=== PATIENT | female | born 1950 | race Caucasian/White ===

== ENCOUNTER → 2020-06-22 | Outpatient (CLI) | payer MEDICARE ==
[~2020-06-22] MED LIST: OMNIPAQUE 350 MG/ML, 150 ML BOTTLE ONE
== END | disposition home or self-care (01) ==
LOC: CFH 09:17
PROVIDERS: ATTEND Internal Medicine Cardiovascular Disease
DX: I48.91 Unspecified atrial fibrillation (principal); M41.85 Other forms of scoliosis, thoracolumbar region
CPT/HCPCS: 71046; 75572; 82565; Q9967

== ENCOUNTER 2020-06-25 05:54 | Observation (INO) | payer MEDICARE ==
[~2020-06-25] VITALS: Ht 175.3 cm; Wt 68.5 kg
[2020-06-25] MEDS ORDERED: SODIUM CHLORIDE 0.9% 1,000 ML IV ONE (06:30)
[2020-06-25] MEDS ORDERED: SODIUM CHLORIDE 0.9% 1,000 ML IV SCH (06:30)
[2020-06-25] MEDS ORDERED: APIX5TAB PO (06:31)
[2020-06-25] MEDS ORDERED: LOSA25TA25 PO (06:31)
[2020-06-25] MEDS ORDERED: RIZA10TA20 PO (06:31)
[2020-06-25] MEDS ORDERED: ESTR0.6246 PO (06:31)
[2020-06-25] MEDS ORDERED: DILT120C80 PO (06:31)
[2020-06-25 06:34] VITALS: BP 141/83
[2020-06-25] MEDS ORDERED: FENTANYL PF 250 MCG/5ML ONE (07:41)
[2020-06-25] MEDS ORDERED: MIDAZOLAM 1 MG/ML, 2ML ONE (07:41)
[2020-06-25] MEDS ORDERED: EPHEDRINE 50 MG/ML, 1ML ONE (08:21)
[2020-06-25] MEDS ORDERED: ONDANSETRON 2MG/ML, 2ML ONE (08:21)
[2020-06-25] MEDS ORDERED: LIDOCAINE 2%, 20ML ONE (08:42)
[2020-06-25] MEDS ORDERED: ROCURONIUM 10MG/ML,5ML ONE (09:27)
[2020-06-25] MEDS ORDERED: PROPOFOL 10 MG/ML, 20ML ONE (09:27)
[2020-06-25] MEDS ORDERED: SUCCINYLCHOLINE 20 MG/ML, 10ML ONE (09:28)
[2020-06-25] MEDS ORDERED: DEXAMETHASONE 4 MG/ML, 1ML ONE ×2 (09:30)
[2020-06-25] MEDS ORDERED: HEPARIN 1,000 UNITS/ML, 10ML ONE ×3 (11:12)
[2020-06-25] MEDS ORDERED: GLYCOPYRROLATE 0.2MG/1ML, 5ML ONE (11:33)
[2020-06-25] MEDS ORDERED: NEOSTIGMINE 1 MG/ML, 10ML ONE (11:33)
[2020-06-25] MEDS ORDERED: OXYcodone 5 MG/5 ML ORAL.SOL UDC PO PRN (12:00)
[2020-06-25] MEDS ORDERED: LABETALOL 5MG/ML, 20ML IV PRN (12:00)
[2020-06-25] MEDS ORDERED: ZOLPIDEM 5MG TABLET PO PRN (12:00)
[2020-06-25] MEDS ORDERED: ACETAMINOPHEN 325 MG TABLET PO PRN ×2 (12:00)
[2020-06-25] MEDS ORDERED: PROMETHAZINE 12.5 MG SUPP PR PRN (12:00)
[2020-06-25] MEDS ORDERED: hydrALAzine 20 MG/ML, 1ML IV PRN (12:00)
[2020-06-25] MEDS ORDERED: HYDROmorphone 1 MG/ML, 1ML INJ IVPush PRN (12:00)
[2020-06-25] MEDS ORDERED: EPHEDRINE 50 MG/ML, 1ML IVPush PRN (12:00)
[2020-06-25] MEDS ORDERED: APIXABAN 5 MG TABLET PO SCH (12:00)
[2020-06-25] MEDS ORDERED: MEPERIDINE/PF 25MG/0.5ML IVPush PRN (12:00)
[2020-06-25] MEDS: APIXABAN 5 MG TABLET PO SCH ×2 (12:00→21:12)
[2020-06-25] MEDS ORDERED: FENTANYL PF 100 MCG/2ML IV PRN (12:00)
[2020-06-25] MEDS ORDERED: DIPHENHYDRAMINE 50 MG/ML, 1ML IVPush PRN ×2 (12:00)
[2020-06-25] MEDS ORDERED: DIAZEPAM 5 MG/ML, 2ML IVPush PRN (12:00)
[2020-06-25] MEDS ORDERED: ONDANSETRON 2MG/ML, 2ML IVPush PRN ×2 (12:00)
[2020-06-25] MEDS ORDERED: MIDAZOLAM 1 MG/ML, 2ML IV PRN (12:00)
[2020-06-25] MEDS ORDERED: PROMETHAZINE 25 MG/ML, 1ML IVPush PRN (12:00)
[2020-06-25] MEDS ORDERED: ALBUTEROL SULFATE 2.5 MG/3 ML NPPB PRN (12:00)
[2020-06-25] MEDS ORDERED: RIZATRIPTAN 10MG TABLET PO PRN (12:00)
[2020-06-25] MEDS ORDERED: APIXABAN 5 MG TABLET ONE (12:18)
[2020-06-25 13:30] VITALS: BP 98/58
[2020-06-25 19:35] VITALS: BP 111/73
[2020-06-25] MEDS ORDERED: RIZATRIPTAN 10MG TABLET PO ONE (21:00)
[2020-06-25] MEDS ORDERED: RIZATRIPTAN 10 MG PO PRN (21:00)
[2020-06-25] MEDS: COLCHICINE 0.6 MG CAPSULE PO SCH (21:12)
[2020-06-26 00:59] VITALS: BP 103/64
[2020-06-26] MEDS ORDERED: ACET325T26 PO (07:42)
[2020-06-26] MEDS ORDERED: COLC0.6C3 PO (07:42)
[2020-06-26 08:08] VITALS: BP 138/78
[2020-06-26] MEDS: COLCHICINE 0.6 MG CAPSULE PO SCH (08:37)
[2020-06-26] MEDS: APIXABAN 5 MG TABLET PO SCH (08:37)
[2020-06-26 08:51] LABS: CREATININE 0.83 mg/dL (0.55-1.02)
[2020-06-26] MEDS ORDERED: ESTROGENS CONJUGATED 0.625 MG TABLET PO SCH (09:00)
[2020-06-26] MEDS ORDERED: DILTIAZEM 120 MG CAP.ER.24H PO SCH (09:00)
[2020-06-26] MEDS ORDERED: LOSARTAN 25MG TABLET PO SCH (09:00)
== END 2020-06-26 11:43 | disposition home or self-care (01) ==
LOC: CACL 05:54 → ORIP 11:43 → 5SO 13:35 → DCLOUNGE 06-26 11:37
PROVIDERS: ADMIT Internal Medicine Cardiovascular Disease; ATTEND Internal Medicine Cardiovascular Disease
DX: I48.91 Unspecified atrial fibrillation (principal); Z20.822 Contact with and (suspected) exposure to COVID-19; I31.3 Pericardial effusion (noninflammatory); D68.69 Other thrombophilia; Z79.01 Long term (current) use of anticoagulants; Z98.82 Breast implant status; Z79.899 Other long term (current) drug therapy
CPT/HCPCS: 36415; 76937; 82565; 85347; 93306; 93312; 93321; 93325; 93613; 93656; 93657; 93662; C1730; C1732; C1759; C1766; C1893; C1894; G0378; J1100; J1644; J2250; J2405; J2704; J2710; J3010; J3490; U0005; J0330; U0003

== ENCOUNTER → 2020-07-01 | Outpatient (CLI) | payer MEDICARE ==
[~2020-07-01] MED LIST changes: +ACET325T26 PO; +APIX5TAB PO; +COLC0.6C3 PO; +DILT120C80 PO; +ESTR0.6246 PO; +LOSA25TA25 PO; -OMNIPAQUE 350 MG/ML, 150 ML BOTTLE ONE; +RIZA10TA20 PO
== END | disposition home or self-care (01) ==
LOC: CVU 11:47
PROVIDERS: ATTEND Nurse Practitioner Family
DX: I08.3 Combined rheumatic disorders of mitral, aortic and tricuspid valves (principal); E78.00 Pure hypercholesterolemia, unspecified; I10 Essential (primary) hypertension; I31.3 Pericardial effusion (noninflammatory); Z98.82 Breast implant status
CPT/HCPCS: 93308

== ENCOUNTER → 2020-08-06 | Outpatient (CLI) | payer MEDICARE | END | disposition home or self-care (01) | LOC: CVU 12:23 | PROVIDERS: ATTEND Nurse Practitioner Family | DX: I31.3 Pericardial effusion (noninflammatory) (principal); Z98.82 Breast implant status | CPT/HCPCS: 93308 ==

== ENCOUNTER → 2020-08-10 | Outpatient (CLI) | payer MEDICARE ==
[~2020-08-10] MED LIST changes: +OMNIPAQUE 350 MG/ML, 100ML BOTTLE ONE
== END | disposition home or self-care (01) ==
LOC: RAD 15:08
PROVIDERS: ATTEND Nurse Practitioner Family
DX: I48.91 Unspecified atrial fibrillation (principal); Q25.6 Stenosis of pulmonary artery
CPT/HCPCS: 71275; Q9967